=== PATIENT | female | born 1940 | race Caucasian/White ===

== ENCOUNTER 2017-01-20 09:25 | Inpatient (IN) | payer MEDICARE ==
[2017-01-20 10:05] LABS: Hematocrit 44 % (35-47); Hemoglobin 14.2 g/dl (12.0-16.0); Mean Corpuscular HGB Conc 33 g/dl (31-36); Mean Corpuscular Hemoglobin 28 pg (27-31); Mean Corpuscular Volume 85 fL (80-97); Mean Platelet Volume 8 um3 (7.4-10.4); Red Blood Count 5.14 10^6/ul (4.0-5.4); Red Cell Distribution Width 14 % (10.5-15); White Blood Count 7.7 10^3/ul (3.5-10.8)
--- NOTE | 2017-01-20 10:05 | RAD ---
INDICATION: Aphasia COMPARISON: CT brain July 05, 2014 TECHNIQUE: Noncontrast axial source images were acquired from the skull base to the vertex. FINDINGS: Ventricles/sulci: There is mild cortical atrophy with compensatory dilatation of the CSF spaces. Brain parenchyma: There is no focal parenchymal finding, evidence of intracranial mass, or intracranial mass effect. Intracranial hemorrhage:None. Extra-axial spaces: There are no abnormal extra axial fluid collections or evidence of extra-axial mass. Calvarium: There is no calvarial fracture or other calvarial abnormality. Scalp: There is no evidence of scalp or extracalvarial soft tissue abnormality. Paranasal sinuses/mastoid: The paranasal sinuses and mastoid air cells are clear. Other: None. IMPRESSION: Mild cortical atrophy. No acute intracranial findings are identified on noncontrast imaging. Findings called to ED at 0958 hours
[2017-01-20] MEDS ORDERED: ALTEPLASE IVPB ONE (10:20)
[2017-01-20] MEDS ORDERED: ALTEPLASE IV ONE ×3 (10:20→10:22)
[2017-01-20] MEDS ORDERED: Alteplase* 100 MG VIAL ONE (10:30)
[2017-01-20 10:34] LABS: Albumin 4.2 g/dL (3.2-5.2); BUN/Creatinine Ratio 17.5 (8-20); Calcium 9.7 mg/dL (8.6-10.3); EGFR African American 89.7 (>60); EGFR Non-African American 69.7 (>60); Globulin 3.2 g/dL (2-4); HDL Cholesterol 56.5 mg/dL; Potassium 3.2 mmol/L (3.5-5.0); Total Bilirubin 0.6 mg/dL (0.2-1.0); Total Protein 7.4 g/dL (6.4-8.9)
--- NOTE | 2017-01-20 10:51 | RAD ---
INDICATION: Cerebrovascular accident. COMPARISON: Appear seated is made with prior studies from April 29, 2012 and July 05, 2014. TECHNIQUE: A portable view of the chest was obtained. FINDINGS: Cardiac and mediastinal contours appear to be within normal limits. There is slight elevation of the left hemidiaphragm. There is pleural thickening present laterally at the left lung base which is unchanged suggestive of scarring. The lungs are otherwise clear IMPRESSION: LEFT BASILAR SCARRING AND VOLUME LOSS, NO EVIDENCE FOR ACUTE FINDING.
--- NOTE | 2017-01-20 11:54 | HP ---
H&P (Free Text) History and Physical: Critical Care Medicine Admission Note/History and Physical 76 yo female who presented to ER with acute onset of dysarthria and facial droop whose CT Head revealed only cortical atrophy and subsequently was administered TPA. When arrived to see patient, she was in course of interview by Neurologist, Dr Arce. Contacted per protocol to admit patient to ICU for 24 hr observation post TPA. NKDA PMH: Shingles, Vertigo, Thoracic Surgery on Lt side for management of tuberculosis 46 years ago in [facility], HTN, Hypercholesterolemia, B12 deficiency, x2, Anxiety Meds: Lisinopril/HCTZ 20/25 Q AM and Lisinopril 20 mg Q PM; ASA 81 mg Q PM, B12 shot monthly by PMD, Pravastatin 10 mg Q 48 hrs, Cloraz 7.5 mg cuts it into 4 pieces and takes the one quarter tab PRN Soc Hx: lives alone, has 2 sons in area, is originally from [facility], negative Tobacco, negative EtOH Fam Hx: mother with Breast Ca, father of head trauma, sister with some form of cancer recently ROS: denies cardiac, pulmonary, hepatobiliary, hematologic, gastrointestinal, infectious diseases re Neurologic experiences occassional dizziness with loss of balance...has seen an ENT specialist in [facility] SBP 158 HR 103 RR 16 SpO2 97 Skin no diaphoresis, no cyanosis Sclerae anicteric, pupils equal Oral mucosa pink Neck supple, no bruits Lungs with bilateral BS, no wheezes Cor RRR S1 and S2 normal, no rub, no murmur Abd soft, nontender, (+)BS Ext no edema Neuro speech fluent, strong in all 4 extremities, oriented and cooperative WBC 7.7 Hgb 14.2 Plt 255 INR 0.86 PTT 25.6 K 3.2 BUN/Creat 14/0.8 Gluc 130-150 TG 98 Cholest 158 LDL 82 CXR no PVC, no infiltrates IMP: Acute onset of dysarthria and facial droop consistent with acute CVA for which TPA administered....coming to ICU for routine post-TPA observation Hx HTN Hx Hypercholesterolemia Hypokalemia Mild hyperglycemia...??stress response Hx thoracic surgery for TB in remote past Hx mild anxiety PLAN/REC: Admit to ICU Ongoing Neurology assessment Ultrasound Carotids per request of Neurology CT Head at 24 hrs per protocol MRI Brain tomorrow per Neurology Resume usual anti-HTN meds Replete K Usual dose Pravastatin Will probably give Ativan at low dose if needed for anxiety unless there are available low doses of her agent DVT prophyl Keep HOB raised Swallow evaluation per routine
[2017-01-20] MEDS ORDERED: Potassium Chloride LIQUID* 20 MEQ PACKET PO ONE (12:06)
[2017-01-20] MEDS ORDERED: CLORAZEPATE 7.5 MG PO PRN (14:00)
[2017-01-20] MEDS ORDERED: Labetalol IV* 5 MG/ML 20 ML VIAL IV PUSH PRN (14:31)
--- NOTE | 2017-01-20 14:32 | RAD ---
INDICATION: Stroke. COMPARISON: No relevant prior exams available on the [facility] [place] PACS. TECHNIQUE: Bilateral carotid duplex scan. Stenosis estimations reflect velocity criteria that have been correlated to angiographic stenosis calculations based on distal internal carotid diameter. REPORT: RIGHT ICA: 47 cm/s peak systolic 15 cm/s end diastolic CCA: 76 cm/s peak systolic ICA/CCA peak systolic ratio: 0.61 The right common carotid artery and internal carotid artery are without evidence for significant atherosclerotic disease. Normal spectral wave forms are present throughout. Antegrade flow in the right vertebral artery. LEFT ICA: 55 cm/s peak systolic 15 cm/s end diastolic CCA: 86 cm/s peak systolic ICA/CCA peak systolic ratio: 0.67 The left common carotid artery and internal carotid artery are without evidence for significant atherosclerotic disease. Normal spectral wave forms are present throughout. Antegrade flow in the left vertebral artery. IMPRESSION: Negative carotid ultrasound. CPT II Codes: 3100F
[2017-01-20] MEDS: Lisinopril TAB* 10 MG PO SCH (17:08)
[2017-01-20] MEDS: CMC:Pravastatin (NF) 20 MG TAB PO SCH (17:10)
--- NOTE | 2017-01-20 19:59 | CONS ---
NEUROLOGY CONSULTATION: DATE OF CONSULTATION: 01/20/17 LOCATION: She is in the emergency room, to be admitted. REFERRING PHYSICIAN: Dr. Jenkins. PRIMARY CARE DOCTOR: Dr. Leary. CHIEF COMPLAINT: Slurred speech. HISTORY OF PRESENT ILLNESS: Ashely Tracy is a 76-year-old right-handed woman who was in her usual state of health this morning, when she got up feeling fine. At about 9 o'clock she was reading, it sounds like to herself, and she realized that her speech was altered. At another time she states the right side of her mouth just did not feel right. She does not describe numbness or tingling and it is hard to differentiate whether she feels if there was just altered speech or some other abnormal sensation, but she did not feel normal and called her son. When she spoke to her son over the phone, he agreed that her speech was altered and so she presented to the emergency room. Time of onset was felt to be about 9 o'clock, but the last time she had spoken with anybody or even to herself as best as I can tell was the night before. In any case, other than the change in speech and funny sensation in the right side of her lower face, there were no other symptoms. There is no headache, visual symptoms, problems with coordination in the limbs, or difficulty walking. There is no history of stroke or transient ischemic attack. There has been no recent trauma, history of intracranial bleeding, or recent surgeries. She is on chronic aspirin therapy, but not anticoagulants. There is no history of heart disease. She has a history of hypertension, but not of diabetes and she is a nonsmoker. PAST MEDICAL HISTORY: Notable for hypertension. MEDICATIONS: At home consist of: 1. Aspirin 81 mg p.o. daily. 2. Lisinopril 20 mg p.o. daily. 3. Hydrochlorothiazide 25 mg p.o. daily. 4. Pravastatin dose unknown. 5. Vitamin D dose unknown. ALLERGIES: According to the computer records, she does not have any drug allergies. REVIEW OF SYSTEMS: Negative for headaches, recent falls, difficulty walking, change in vision, or numbness or tingling in the limbs. There is no history of diabetes, heart disease, or recent falls. She does feel a bit unsteady at times , but does not use any assistive aids to walk. She is a nonsmoker. PHYSICAL EXAM: She is well nourished and well hydrated, a little bit overweight. Blood pressure on the monitor is running about 150/80 to 90, heart rate running in the 70s and appears to be in sinus rhythm, respirations about 16. Heart is in a regular rate and rhythm without murmurs heard. Carotid pulses are symmetrical and there are no cervical bruits. Oral mucosa is moist and atraumatic. Neurological: Pupils react equally from about 4 down to about 2.5 mm. Eye movements are normal and visual foley are full to confrontation. Palate and tongue appear normal, tongue protrudes in the midline and palate rises symmetrically. She has a mild buccolingual dysarthria. Facial musculature reveals very mild flattening of the right nasolabial fold. Volitional facial movement is normal. Facial sensation to pin and light touch is relatively intact with some variable asymmetries, but no fixed sensory deficit. Hearing is intact. Motor exam reveals normal muscle tone and strength in the limbs proximally and distally. 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 There is no pronator drift. There is no drift downward in the legs either. Sensory exam in the limbs to light touch and pin is variable, but there is no fixed pattern of sensory deficits in the limbs. Kxough-tl-rkmc maneuver and ssey-ma-lvzk maneuvers are normal. Finger taps in the hands are normal as well. Reflexes are brisk and symmetric, grade 1 ankle reflexes. Plantars are flexor bilaterally. DIAGNOSTIC STUDIES/LAB DATA: Includes a CT of the brain, which I reviewed and which looks completely normal. Chemistries notable for nonfasting glucose of 144, lactic acid 2.7, otherwise normal chemistry profile. Non-fasting lipid profile this morning notable for cholesterol 158, LDL 82. INR is low normal at 0.86 as well as PTT at 25.6. CBC is within normal limits, platelet count is 255 ,000. IMPRESSION: Possible transient ischemic attack or minor stroke. Dr. Jenkins has already started to give her TPA and it is infusing. I rate her NIH stroke score as 2. She has no contraindications to TPA. I explained the potential risks of TPA to Ms. Tracy and her son including risk of intracranial and gastrointestinal bleeding. She would be admitted to the intensive care unit to undergo the usual post TPA stroke protocol. She should have an imaging study of her carotid arteries today, as she has high grade left intracranial carotid stenosis, she would be a candidate for an endarterectomy in the days ahead. In that case, she would need to be transferred to a center where Vascular Surgery is available. I will follow her with you. [id number]/[facility] #: [id number] PAGE
--- NOTE | 2017-01-21 08:08 | ED ---
Ever Orona Adam, scribed for Joey Hightower MD on 01/20/17 at 0935 . Neurological HPI - HPI Summary HPI Summary: 76 year old female arrived to [facility] complaining of slurred speech beginning 1 hour [employer]. Patient had difficulty talking and felt that her speech was altered. She denied any headache. She has a PMHx of HLD and HTN for which she takes medication, but denied any past CVA/TIA, head injuries, or DM. - History of Current Complaint Chief Complaint: ED Stated Complaint: SLURRED SPEECH Time Seen by Provider: 01/20/17 09:34 Onset/Duration: Gradual Onset Timing: Constant Onset Severity: Moderate Current Severity: Moderate Neurological Deficit Location: Generalized Pain Intensity: 0 Character: Impaired Speech Alleviating: Spontanious Resolution Associated Signs and Symptoms: Negative: Headache - Allergy/Home Medications Allergies/Adverse Reactions: Allergies Allergy/AdvReac Type Severity Reaction Status Date / Time No Known Allergies Allergy Verified 07/05/14 17:48 Home Medications: Home Medications Aspirin EC Low Dose* [Ecotrin EC Low Dose*] 81 mg PO DAILY 01/20/17 [History Confirmed 01/20/17] Clorazepate TAB* [Tranxene TAB*] 7.5 mg PO TID 01/20/17 [History Confirmed 01/20] Cyanocobalamin INJ * [Vitamin B12 INJ *] 1,000 mcg IM MONTHLY 01/20/17 [History Confirmed 01/20/17] Lisinopril TAB* [Prinivil TAB*] 20 mg PO QPM 01/20/17 [History Confirmed ] Lisinopril/HCTZ 20/25(NF) [Zestoretic 20/25(NF)] 1 tab PO DAILY 01/20/17 [ History Confirmed 01/20/17] Pravastatin (NF) [Pravachol (NF)] 10 mg PO EVERY OTHER DAY 01/20/17 [History Confirmed 01/20/17] PMH/Surg Hx/FS Hx/Imm Hx Endocrine/Hematology History: Denies: Hx Diabetes Cardiovascular History: Reports: Hx Hypercholesterolemia, Hx Hypertension Neurological History: Denies: Hx CVA, Hx Transient Ischemic Attacks (TIA) - Surgical History Surgery Procedure, Year, and Place: not on head or neck Infectious Disease History: No Infectious Disease History: Reports: Hx Shingles, Hx Tuberculosis Denies: History Other Infectious Disease, Traveled Outside the [place] in Last 30 Days - Family History Known Family History: Positive: Hypertension Negative: Cardiac Disease, Diabetes - Social History Alcohol Use: None Substance Use Type: Reports: None Smoking Status (MU): Never Smoked Tobacco Review of Systems Negative: Fever, Chills Negative: Erythema Negative: Sore Throat Negative: Chest Pain Negative: Shortness Of Breath, Cough Negative: Abdominal Pain, Vomiting, Nausea Negative: dysuria, hematuria Negative: Myalgia, Edema Negative: Rash Neurological: Other - no dizziness All Other Systems Reviewed And Are Negative: Yes Physical Exam - Summary Physical Exam Summary: Constitutional: Well-developed, Well-nourished, Alert. (-) Distressed Skin: Warm, Dry HENT: Eyes: Conjunctiva normal Neck: Musculoskeletal ROM normal neck. (-) JVD, (-) Stridor, (-) Tracheal deviation Cardio: Rhythm regular, rate normal, Heart sounds normal; Intact distal pulses ; The pedal pulses are 2+ and symmetric. Radial pulses are 2+ and symmetric. (- ) Murmur Pulmonary/Chest wall: Effort normal. (-) Respiratory distress, (-) Wheezes, (-) Rales Abd: Soft. (-) Tenderness, (-) Distension, (-) Guarding, (-) Rebound Musculoskeletal: (-) Edema Lymph: (-) Cervical adenopathy Neuro: Alert, Oriented x3, Strength normal, Cranial nerves II-XII are grossly intact. (-) Dysmetria, (-) Nystagmus, (-) Ataxia by finger to nose testing, (-) Sensory deficit. Psych: Mood and affect Normal Triage Information Reviewed: Yes Vital Signs On Initial Exam: Initial Vitals Temp Pulse Resp BP Pulse Ox 96.7 F 112 20 179/108 99 01/20/17 09:27 01/20/17 09:27 01/20/17 09:27 01/20/17 09:27 01/20/17 09:27 Vital Signs Reviewed: Yes Diagnostics - Vital Signs Vital Signs Temp Pulse Resp BP Pulse Ox 01/20/17 09:27 96.7 F 112 20 179/108 99 - Laboratory Result Diagrams: 01/20/17 09:50 01/20/17 09:50 Lab Statement: Any lab studies that have been ordered have been reviewed, and results considered in the medical decision making process. - Radiology CXR Radiology Interpretation Completed By: Radiologist - IMPRESSION: LEFT BASILAR SCARRING AND VOLUME LOSS, NO EVIDENCE FOR ACUTE FINDING. - CT Brain CT CT Interpretation Completed By: Radiologist - IMPRESSION: Mild cortical atrophy. No acute intracranial findings are identified on noncontrast imaging. Findings called to ED at 0958 hours - EKG 09:39 Cardiac Rate: Tachycardia - 105 BPM EKG Rhythm: Sinus Tachycardia - 105 bpm EKG Interpretation: no STEMI - Additional Comments Diagnostic Additional Comments: Lactic Acid - 2.7 NIH Scale - NIH Scale Level of Consciousness: Alert/Keenly Responsive Ask Patient the Month and His/Her Age: Both Correct Ask Pt to Open/Close Eyes and Dairy Hand/Release Non-Paretic Hand: Both Correctly Best Gaze (Only Horizontal Eye Movement): Normal Visual Field Testing: No Visual Loss Facial Paresis-Pt to Smile & Close Eyes or Grimace Symmetry: Minor Paralysis Motor Function - Right Arm: No Drift-Holds 10 Seconds Motor Function - Left Arm: No Drift-Holds 10 Seconds Motor Function - Right Leg: No Drift-Holds 10 Seconds Motor Function - Left Leg: No Drift-Holds 10 Seconds Limb Ataxia-Must be out of Proportion to Weakness Present: Absent Sensory (Use Pinprick to Test Arms/Legs/Trunk/Face): Normal Best Language (Describe Picture, Name Items): No Aphasia Dysarthria (Read Several Words): Slurs Some Words Extinction and Inattention: No Abnormality Total Score: 2 Re-Evaluation - Re-Evaluation First Eval Re-Evaluation Time: 11:45 - Pt's speech is improved. Change: Improved Course/Dx - Course Course Of Treatment: 10:20 - We had a long risk/benefit discussion with family at bedside involving both of the pt's sons and her [id number]. They and the pt agreed that slurred speech would be particularly disabling for her so we decided to proceed with the TPA. - Diagnoses Provider Diagnoses: CVA (cerebral vascular accident) - Physician Notifications Discussed Care of Patient With: Dr. Joyce (ICU) at 10:43. - Critical Care Time Critical Care Time: 30-74 min - 45 minutes Discharge - Discharge Plan Condition: Stable Disposition: ADMITTED TO [facility] documentation as recorded by the Ever lima Adam accurately reflects the service I personally performed and the decisions made by , Joey Hightower MD.
[2017-01-21] MEDS: Hydrochlorothiazide TAB* 25 MG PO SCH (08:54)
[2017-01-21] MEDS: Lisinopril TAB* 10 MG PO SCH ×2 (08:54→17:25)
[2017-01-21] MEDS ORDERED: Potassium Chlor TAB* 20 MEQ TAB.ER PO ONE (10:00)
[2017-01-21 10:29] LABS: Urine Bacteria Absent (Absent); Urine Bilirubin Negative (Negative); Urine Glucose Negative (Negative); Urine Nitrite Negative (Negative)
[2017-01-21] MEDS ORDERED: Gadoteridol* (CONTRAST) 279.3 MG/ML 10 ML IV ONE (10:29)
--- NOTE | 2017-01-21 11:11 | PN ---
Progress Note - Progress Note Note: CRITICAL CARE MEDICINE Date: 01/21/17 Time: 800 SUBJECTIVE: Patient seen and examined. Son at bedside. PHYSICAL EXAM: Vital Signs: Reviewed. Neurologic: awake, communicating. feels her speech is altered, and is a little slurred. Eq strength bl HEENT: pupils equal. Sclera anicteric. Trachea midline. Cardiovascular: S1 S2 Respiratory: clear Abdomen: Soft, nt. No r/g/r. Extremities: Warm. LABS: Reviewed. IMAGING: Reviewed. MEDICATIONS: Reviewed. ASSESSMENT: 76 F CVA s/p TPA - ?small cva residual- as explained to pt and son. Awaitr MRI today to confirm finding and continued risk factor modifications. Will be post tpa 24h today and can start asa post imaging. MRI should be adequate for timing. Lipids ok but on low dose statin. Leave on tele another 24h. PO diet. oob. ambulate. F/u outpt htn needs. Neuro f/u Supportive and preventative care as ordered. SUP: po VTE prophylaxis: held post tpa, and now can ambulate. Disposition: to floor Code Status: Full Critical Care Time: 25min FMick Lamb DO
--- NOTE | 2017-01-21 11:25 | RAD ---
INDICATION: CVA status post TPA. COMPARISON: Comparison is made with prior CTs of the brain from January 20, 2017 and January 21, 2017. TECHNIQUE: Sagittal T1, axial T1, T2, susceptibility, FLAIR and diffusion-weighted images were obtained. In addition, axial, sagittal and coronal T1-weighted images were obtained following intravenous injection of 15 ml of ProHance contrast. FINDINGS: The ventricles, cisterns and sulci are prominent consistent with diffuse atrophy. There are several small focal areas of increased signal intensity on T2 weighted images in the periventricular white matter most consistent with chronic small vessel ischemic changes. There is a small area of restricted diffusion present in the left periventricular white matter and centrum semiovale in the posterior left frontal lobe measuring 1.5 x 0.8 cm in size most consistent with acute infarct. There is no evidence for hemorrhage. No abnormal enhancement is present. The visualized portion of the paranasal sinuses and mastoid air cells appear clear. IMPRESSION: SMALL ACUTE NONHEMORRHAGIC INFARCT IN THE POSTERIOR LEFT FRONTAL LOBE.
--- NOTE | 2017-01-21 11:31 | RAD ---
INDICATION: CVA status post TPA. COMPARISON: Correlation is made with a prior CT of the brain from January 20, 2017 and a prior MRI of the brain from January 21, 2017. TECHNIQUE: Contiguous axial sections of the brain were obtained from the skull base to the vertex without contrast. FINDINGS: The ventricles, cisterns and sulci are enlarged consistent with diffuse atrophy. No significant focal abnormality is seen. No discrete abnormality is noted to correlate with the small area of restricted diffusion on the MRI study in the posterior left frontal lobe. There is no evidence for hemorrhage. No significant focal osseous abnormality is seen. The visualized portion of the paranasal sinuses and mastoid air cells appear clear. IMPRESSION: NO EVIDENCE FOR HEMORRHAGE.
[2017-01-21] MEDS: Aspirin Low Dose CHEW TAB* 81 MG PO SCH (13:27)
[2017-01-21] MEDS: Clopidogrel TAB* 75 MG PO SCH (15:03)
--- NOTE | 2017-01-21 16:00 | ECHO ---
Patient: ЕКАТЕРИНА GORMAN [facility] Rec#: [id number] : 1940 Date: 01/21/2017 Age: 76y Height: 157.48 cm / 62.0 in Weight: 79.83 kg / 175.9 lbs Sex: F BSA: 1.81 Room#: [facility] Admit Date#: 01/20/2017 Type: Inpatient Referring: Rommel Arce MD Reading: Foster Garcia MD Hydraulic Repairer: Velasquez Smith RDCS CC: Reed Leary MD Transthoracic Echocardiogram Indication: STROKE BP: 141/73 HR: 90 Rhythm: NSR Findings History: HTN,HLD, Technical Comments: The study is technically difficult. The study is technically limited due to patient body habitus. Left Ventricle: The left ventricular chamber size is normal. Mild to moderate concentric left ventricular hypertrophy is observed. Global left ventricular wall motion and contractility are within normal limits. There is normal left ventricular systolic function. The estimated ejection fraction is 60-65%. Abnormal left ventricular diastolic filling is observed, consistent with impaired relaxation. The lack of left atrial enlargement suggests this finding may not have clinical significance. Left Atrium: The left atrial chamber size is normal. Right Ventricle: The right ventricular cavity size is normal. The right ventricular global systolic function is normal. Right Atrium: The right atrial cavity size is normal.The interatrial septum was not visualized well enough to comment on any intactness. No bubble study was ordered. Aortic Valve: The aortic valve is trileaflet. There is no evidence of aortic regurgitation. There is no evidence of aortic stenosis. Mitral Valve: There is mitral annular calcification. There is no evidence of mitral regurgitation. There is no evidence of mitral stenosis. Tricuspid Valve: There is trace tricuspid regurgitation. The right ventricular systolic pressure is estimated at 18 mmHg. Pulmonic Valve: The pulmonic valve appears normal. There is no evidence of pulmonic regurgitation. There is no pulmonic stenosis. Pericardium: There is no pericardial effusion. A pericardial fat pad is visualized. Aorta: There is no dilatation of the ascending aorta. There is no dilatation of the aortic arch. There is no dilation of the aortic root. Pulmonary Artery: The main pulmonary artery appears normal. Venous: The inferior vena cava appears normal in size. There is a greater than 50% respiratory change in the inferior vena cava dimension. Conclusions The study is technically limited due to patient body habitus. Mild to moderate concentric left ventricular hypertrophy is observed. The estimated ejection fraction is 60-65%. Abnormal left ventricular diastolic filling is observed, consistent with impaired relaxation. The lack of left atrial enlargement suggests this finding may not have clinical significance. There is trace tricuspid regurgitation. No reports of prior studies offered for comparison. If a more definitive assessment of the interatrial septum is needed would suggest transesophageal imaging with color flow doppler and contrast imaging. Measurements Name Value Normal Range RVIDd (AP) 2D 2.4 cm (0.9 - 2.6) RVDdMajor (2D) 2.2 cm (2.2 - 4.4) RAd ISD 4CH 4 cm (3.4 - 4.9) RA (A4C)W 2.6 cm (2.9 - 4.6) IVSd (2D) 1.1 cm (0.6 - 1) LVPWd (2D) 0.9 cm (0.6 - 1) LVIDd (2D) 2.8 cm (3.6 - 5.4) LVIDs (2D) 2.1 cm - LV FS (2D) 25 % (25 - 45) Aortic Annulus 1.6 cm (1.4 - 2.6) Ao root diameter (2D) 2.5 cm (2.1 - 3.5) Ascending Ao 3 cm (2.1 - 3.4) Aortic arch 1.9 cm (1.8 - 3.4) LA dimension (AP) 2D 3.2 cm (2.3 - 3.8) LAd ISD 4CH 4.5 cm (2.9 - 5.3) LA ISD 4CH W 2.5 cm (2.5 - 4.5) Name Value Normal Range LA ESV SP 4CH (A/L) 25 ml - LA ESV SP 2CH (A/L) 14 ml - LA ESV BP (A/L) 19 ml - LA ESV BP (A/L) index 10.6 ml/m2 - LA ESV SP 4CH (MOD) 24 ml - LA ESV SP 2CH (MOD) 13 ml - Name Value Normal Range MV E-wave Vmax 0.52 m/sec - MV deceleration time 123 msec - MV A-wave Vmax 0.81 m/sec - MV E:A ratio 0.63 ratio - LV septal e' Vmax 0.05 m/sec - LV lateral e' Vmax 0.06 m/sec - LV E:e' septal ratio 10.8 ratio - LV E:e' lateral ratio 9 ratio - Name Value Normal Range LVOT diameter 1.7 cm - LVOT Vmax 0.9 m/sec - Name Value Normal Range TR Vmax 1.9 m/sec - TR peak gradient 15 mmHg - RAP 3 mmHg - RVSP 18 mmHg - IVC diameter 1.44 cm - Name Value Normal Range PV Vmax 0.9 m/sec -
--- NOTE | 2017-01-21 19:54 | CONS ---
NEUROLOGY FOLLOWUP: DATE OF FOLLOWUP: 01/21/17 LOCATION: Inpatient in Room #443. HOSPITALIST: Dr. Chang. PRIMARY CARE PROVIDER: Dr. Leary. CHIEF COMPLAINT: Slurred speech. INTERVAL HISTORY: Since yesterday, Mrs. Lund feels that she is better. At times, she still feels like her speech is a little off. She feels steady in her feet and has not noticed any weakness or incoordination in her limbs. No headaches or facial numbness or change in vision. MEDICATIONS: Reviewed and she is now on: 1. Aspirin 81 mg p.o. daily started today. 2. Tranxene 1.875 mg p.o. t.i.d. as needed. 3. HydroDIURIL 25 mg p.o. daily. 4. Prinivil 20 mg p.o. b.i.d. 5. Pravastatin 10 mg p.o. daily. PHYSICAL EXAMINATION: She is well nourished and well hydrated. Temperature 99.0 temporally, blood pressure running about 140/60-73, heart rate is about 70 and regular. Heart is in a regular rate and rhythm without murmurs heard. Neurologically, facial musculature appears symmetric. She has an accent but I do not detect any dysarthria. Eye movements seem full. Facial sensation to cotton is intact. She has normal coordination and finger taps in the upper extremities. There is no pronator drift. She is alert and a little anxious but appears to have an intact memory and appears to have fairly fluent language. DIAGNOSTIC STUDIES/LAB DATA: Laboratory data includes lipid profile from yesterday when she presented with a cholesterol of 158 and LDL of 82. Hemoglobin A1c is pending. MRI of the brain was reviewed and reveals a small acute periventricular, somewhat linear shaped infarct in the left frontoparietal subcortical white matter. There may be some mild chronic ischemic changes as well. CT of the brain was essentially normal. Carotid ultrasound was unremarkable. IMPRESSION: Small subcortical infarction. Etiology appears to be small vessel disease with main risk factors being her age and history of hypertension. Her nonfasting glucose was elevated and her A1c is pending. We are recommending Plavix to aspirin as she was on aspirin when she had the event. I would recommend dual antiplatelet therapy for 60 to 90 days and then switching to monotherapy with Plavix. We will await her A1c to see if there is evidence of diabetes, which could alter recommendations. I have ordered an echocardiogram as well to see if there is any evidence of a cardioembolic source. Her blood pressure is currently adequately treated. Unless she turns out to be diabetic, her lipids are at acceptable range as well. I have discussed the findings of her studies and current recommendations with Mrs. Tracy and her son. [id number]/[facility] #: [id number] PAGE
[2017-01-22 05:20] LABS: BUN/Creatinine Ratio 26.5 (8-20); Calcium 9.3 mg/dL (8.6-10.3); EGFR Non-African American 66.8 (>60); Potassium 3.4 mmol/L (3.5-5.0)
[2017-01-22 08:02] VITALS: BP 140/80
[2017-01-22] MEDS: Hydrochlorothiazide TAB* 25 MG PO SCH (08:39)
[2017-01-22] MEDS: Aspirin Low Dose CHEW TAB* 81 MG PO SCH (08:39)
[2017-01-22] MEDS: Clopidogrel TAB* 75 MG PO SCH (08:39)
[2017-01-22] MEDS: Lisinopril TAB* 10 MG PO SCH (08:39)
[2017-01-22] MEDS: CMC:Pravastatin (NF) 20 MG TAB PO SCH (08:42)
--- NOTE | 2017-01-23 07:35 | DS ---
DISCHARGE SUMMARY: DATE OF ADMISSION: 01/20/17 DATE OF DISCHARGE: 01/22/17 PRIMARY CARE PROVIDER: Dr. Leary. DISCHARGE DIAGNOSIS: Acute nonhemorrhagic ischemic cerebrovascular accident in the posterior left frontal lobe and subsequent right facial droop due to that, status post tPA treatment. SECONDARY DIAGNOSES: 1. Hypertension. 2. Dyslipidemia. MEDICATIONS AT DISCHARGE: Include: 1. Pravachol 10 mg every other day. 2. Lisinopril and hydrochlorothiazide 20/25 one tablet daily. 3. Lisinopril 20 mg q.p.m. 4. Vitamin B12 injections 1000 mcg monthly IM. 5. Tranxene 7.5 mg 3 times a day. 6. Plavix 75 mg daily. 7. Aspirin 81 mg daily. LABORATORY DATA AND STUDIES PERFORMED DURING THE HOSPITAL STAY: Included the patient's lipid profile showed triglycerides of 98, cholesterol of 158, LDL of 82, and HDL of 56. On 01/22/17, sodium was 136, potassium 3.4, chloride 101, carbon dioxide 29, BUN 22, creatinine 0.83. The patient's hemoglobin A1c was 6.2. Transthoracic echocardiogram obtained on 01/21/17 showed EF of 60% to 65% with mild- to-moderate LVH. Abnormal ventricular diastolic filling was observed consistent with impaired relaxation. There was trace tricuspid regurgitation. Brain MRI, impression: "Small acute nonhemorrhagic infarct in the posterior left frontal lobe." Carotid Doppler studies performed on 01/20/17, impression: "Left common carotid artery and internal carotid artery without evidence for significant atherosclerotic disease. Normal spectral waveforms are present throughout. Antegrade flow in the left ventricular artery." CONSULTATIONS DURING THE HOSPITAL STAY: Included Dr. Arce from Neurology. HOSPITALIZATION COURSE: Ms. Tracy is a 76-year-old female, who presented to the hospital on 01/20/17 with right-sided facial droop. The patient was within the timeframe for tPA that was administered by the ED physician in the ER. Dr. Arce saw the patient in consultation. The patient was transferred to the intensive care unit after tPA. Her right-sided facial weakness improved, although the patient still has residual mild right-sided facial droop at discharge. The patient was seen by Dr. Arce in consultation, who recommended 60 days of dual-antiplatelet therapy with Plavix and aspirin and then most likely, the patient is going to be placed on Plavix with discontinuation of aspirin. The patient was observed on telemetry monitored bed and no significant arrhythmias were noted. Her brain MRI showed small left frontal ischemic CVA. The patient's hemoglobin A1c was noted to be 6.2 and the patient was diagnosed with impaired glucose tolerance and recommended diabetic diet. At discharge, the patient is recommended to follow up with Dr. Arce in approximately 1 to 2 months. The patient is also recommended to follow with her primary care physician in 4 to 7 days. PHYSICAL EXAMINATION: At the time of discharge, blood pressure of 140/80, heart rate of 98 and regular, respiratory rate 22, oxygen saturation 96% on room air, temperature 97.3. General: The patient is a very pleasant 76-year- old female who is in no acute distress. Alert, awake, and oriented x3. HEENT: Head: Atraumatic and normocephalic. Eyes: Pupils equal and reactive to light and accommodation. Oropharynx clear. Mucosa moist. Neck: Supple. No JVD, no bruits bilaterally. Cardiovascular: Regular rate and rhythm. No murmur. Respiratory: Clear to auscultation bilaterally. Abdomen: Soft and nontender. Bowel sounds present in all 4 quadrants. Extremities: There is no edema. Pulses are +2 bilaterally. No clubbing or cyanosis. Neuro Evaluation: Notable for slight right-sided facial droop. There is very mild dysarthria due to that present. Otherwise, cranial nerves are grossly intact. Motor strength is 5/5 bilaterally. There is no pronator drift. There is no sensation deficit. Please note that this is a short summary of the patient's hospital stay, please refer to further medical records for details. TIME SPENT: Approximately 35 minutes was spent on the patient's discharge. CC: Dr. Leary; Dr. Arce* [id number]/[facility] #: [id number] MTDMckenzie
== END 2017-01-22 13:23 | disposition home or self-care (01) | DRG 63 ==
LOC: ED 09:25 → ICU 11:30 → MEDTELE 01-21 09:22
PROVIDERS: ADMIT Internal Medicine Critical Care Medicine; ATTEND Internal Medicine
DX: I63.9 Cerebral infarction, unspecified (principal); I07.1 Rheumatic tricuspid insufficiency; I10 Essential (primary) hypertension; E78.5 Hyperlipidemia, unspecified; E78.00 Pure hypercholesterolemia, unspecified; R29.702 NIHSS score 2; R47.1 Dysarthria and anarthria; R29.810 Facial weakness; F41.9 Anxiety disorder, unspecified; E53.8 Deficiency of other specified B group vitamins; E87.6 Hypokalemia; E66.3 Overweight; R73.02 Impaired glucose tolerance (oral); Z86.11 Personal history of tuberculosis; Z82.49 Family history of ischemic heart disease and other diseases of the circulatory system; Z80.3 Family history of malignant neoplasm of breast; Z80.9 Family history of malignant neoplasm, unspecified; Z68.32 Body mass index [BMI] 32.0-32.9, adult; Z79.02 Long term (current) use of antithrombotics/antiplatelets; Z79.82 Long term (current) use of aspirin
CPT/HCPCS: 36415; 70450; 70553; 71010; 80048; 80053; 80061; 81003; 81015; 83036; 83605; 84484; 85025; 85610; 85730; 86850; 86900; 86901; 87086; 87641; 93005; 93306; 93880; 99285; A9270-GY; A9579; J2997

== ENCOUNTER 2017-10-23 11:37 | Emergency (ER) | payer MEDICARE ==
--- NOTE | 2017-10-23 16:27 | RAD ---
INDICATION: Dizziness COMPARISON: CT brain January 13, 2017 TECHNIQUE: Noncontrast axial source images were acquired from the skull base to the vertex. FINDINGS: Ventricles/sulci: There is cortical atrophy with compensatory dilatation of the CSF spaces. Brain parenchyma: There is mild periventricular and subcortical white matter change compatible with chronic ischemia. Intracranial hemorrhage:None. Extra-axial spaces: There are no abnormal extra axial fluid collections or evidence of extra-axial mass. Calvarium: There is no calvarial fracture or other calvarial abnormality. Scalp: There is no evidence of scalp or extracalvarial soft tissue abnormality. Paranasal sinuses/mastoid: The paranasal sinuses and mastoid air cells are clear. Other: None. IMPRESSION: No acute intracranial findings
[2017-10-23 16:34] LABS: Albumin 4.7 g/dL (3.2-5.2); BUN/Creatinine Ratio 13.9 (8-20); Calcium 9.6 mg/dL (8.6-10.3); EGFR Non-African American 70.8 (>60); Globulin 3.1 g/dL (2-4); Magnesium 1.8 mg/dL (1.9-2.7); Potassium 3.1 mmol/L (3.5-5.0); Total Bilirubin 0.4 mg/dL (0.2-1.0); Total Protein 7.8 g/dL (6.4-8.9)
--- NOTE | 2017-10-23 16:34 | RAD ---
INDICATION: Dizziness. Atraumatic neck pain. COMPARISON: None TECHNIQUE: Noncontrast axial source images was performed from the skull base to the thoracic inlet. Coronal and and sagittal reformatted images were generated. FINDINGS: Vertebrae: There is no fracture or acute focal bony lesion. There is spondylitic change of the cervical spine from C3 through C7 with endplate sclerosis, anterior vertebral spur perforation, mild posterior splenic regeneration, and uncinate process spurring. Alignment: The craniocervical junction appears normal. The cervical vertebrae are normally aligned. Central Canal: There are no significant CT abnormalities of the central canal or foramina. MR imaging is a more sensitive method to evaluate the canal and foramina. Intervertebral disc spaces: The disc spaces are maintained. Brain: The visualized brain appears unremarkable. Soft tissues: The visualized soft tissue elements of the neck are unremarkable. The prevertebral soft tissues appear normal. The lung apices are clear. IMPRESSION: MODERATE MULTILEVEL OSTEOARTHRITIC CHANGE. NO ACUTE FINDINGS.
[2017-10-23 16:36] LABS: Hematocrit 45 % (35-47); Hemoglobin 14.7 g/dl (12.0-16.0); Mean Corpuscular HGB Conc 33 g/dl (31-36); Mean Corpuscular Hemoglobin 28 pg (27-31); Mean Corpuscular Volume 85 fL (80-97); Mean Platelet Volume 8 um3 (7.4-10.4); Red Blood Count 5.22 10^6/ul (4.0-5.4); Red Cell Distribution Width 13 % (10.5-15); White Blood Count 7.1 10^3/ul (3.5-10.8)
[2017-10-23] MEDS ORDERED: NS 0.9% 1000 ML* 1,000 ML IV ONE (16:42)
[2017-10-23] MEDS ORDERED: Potassium Chlor TAB* 10 MEQ TAB.ER PO ONE (16:43)
[2017-10-23 17:07] LABS: TSH (Thyroid Stimulating Horm) 0.82 mcIU/mL (0.34-5.60)
[2017-10-23 17:33] LABS: Urine Bacteria Absent (Absent); Urine Bilirubin Negative (Negative); Urine Glucose Negative (Negative); Urine Nitrite Negative (Negative)
--- NOTE | 2017-10-23 18:19 | ED ---
Dizziness - HPI Summary HPI Summary: 76F presents with right side upper back pain that radiates to right side of head. She also says she has vertigo when she looks to the right. This has been going on for 5 days. She had a TIA over 6 months ago. She states that back pain feels like a stiffness almost like a muscle spasms. She denies any fever. She denies any numbness or tingling. She denies any recent injury. She denies any change in vision. She denies any headache. She states dizziness is only with position changes. She states sometimes her head feel funny. She states that she is having difficulty walking. She denies any chest pain or SOB. She states pain is only a 3/10. She states feels like when she walks she drifts to the right. She has not tried any of her medication such as Tylenol or meclizine. - History Of Current Complaint Chief Complaint: EDDizziness Stated Complaint: DIZZY/RT SIDE HEAD PRESSURE Time Seen by Provider: 10/23/17 15:21 - Allergies/Home Medications Allergies/Adverse Reactions: Allergies Allergy/AdvReac Type Severity Reaction Status Date / Time No Known Allergies Allergy Verified 10/23/17 15:02 Home Medications: Home Medications Meclizine TAB* [Antivert 12.5 TAB*] 25 mg PO TID PRN 10/23/17 [History Confirmed 10/23/17] PMH/Surg Hx/FS Hx/Imm Hx Endocrine/Hematology History: Denies: Hx Diabetes Cardiovascular History: Reports: Hx Aneurysm - Patient followed up with heart doctor-no interventions, Hx Hypercholesterolemia, Hx Hypertension Denies: Hx Pacemaker/ICD Musculoskeletal History: Reports: Other Musculoskeletal History - Bursitis Sensory History: Reports: Hx Cataracts, Hx Contacts or Glasses, Hx Vision Problem Denies: Hx Hearing Aid Opthamlomology History: Reports: Hx Cataracts, Hx Contacts or Glasses, Hx Vision Problem Neurological History: Denies: Hx CVA, Hx Transient Ischemic Attacks (TIA) Psychiatric History: Denies: Hx Panic Disorder - Surgical History Surgery Procedure, Year, and Place: left lung surgery for TB. X 2 Infectious Disease History: No Infectious Disease History: Reports: Hx Shingles, Hx Tuberculosis Denies: History Other Infectious Disease, Traveled Outside the [place] in Last 30 Days - Family History Known Family History: Positive: Hypertension Negative: Cardiac Disease, Diabetes - Social History Alcohol Use: None Substance Use Type: Reports: None Smoking Status (MU): Never Smoked Tobacco Review of Systems Negative: Fever Negative: Chest Pain Negative: Shortness Of Breath Positive: Myalgia - right side back Neurological: Other - dizziness All Other Systems Reviewed And Are Negative: Yes Physical Exam Triage Information Reviewed: Yes Vital Signs On Initial Exam: Initial Vitals Temp Pulse Resp BP Pulse Ox 97.6 F 78 16 149/69 98 10/23/17 11:43 10/23/17 11:43 10/23/17 11:43 10/23/17 11:43 10/23/17 11:43 Vital Signs Reviewed: Yes Appearance: Positive: Well-Appearing Skin: Positive: Warm, Dry Head/Face: Positive: Normal Head/Face Inspection Eyes: Positive: Normal, EOMI, WARD, Conjunctiva Clear ENT: Positive: Normal ENT inspection, Pharynx normal, TMs normal Respiratory/Lung Sounds: Positive: Clear to Auscultation, Breath Sounds Present Cardiovascular: Positive: Normal, RRR Musculoskeletal: Positive: Other - tenderness over right side of neck and upper back, full ROM neck, no midline tenderness. Neurological: Positive: Sensory/Motor Intact, Alert, Oriented to Person Place, Time, CN Intact II-III, Normal Gait, Heel to Toe, Finger to Nose, [place] Test - positive to right, Other - alternating movements intact - Richard Coma Scale Best Eye Response: 4 - Spontaneous Best Motor Response: 6 - Obeys Commands Best Verbal Response: 5 - Oriented Coma Scale Total: 15 Diagnostics - Vital Signs Vital Signs Temp Pulse Resp BP Pulse Ox 10/23/17 14:32 97.5 F 86 16 150/70 100 10/23/17 11:43 97.6 F 78 16 149/69 98 - Laboratory Lab Results: Lab Results 10/23/17 10/23/17 10/23/17 Range/Units 16:05 16:05 16:05 WBC 7.1 (3.5-10.8) 10^3/ul RBC 5.22 (4.0-5.4) 10^6/ul Hgb 14.7 (12.0-16.0) g/dl Hct 45 (35-47) % MCV 85 (80-97) fL MCH 28 (27-31) pg MCHC 33 (31-36) g/dl RDW 13 (10.5-15) % Plt Count 292 (150-450) 10^3/ul MPV 8 (7.4-10.4) um3 Neut % (Auto) 68.4 (38-83) % Lymph % (Auto) 23.3 L (25-47) % [place] % (Auto) 6.4 (1-9) % Eos % (Auto) 1.0 (0-6) % Baso % (Auto) 0.9 (0-2) % Absolute Neuts (auto) 4.9 (1.5-7.7) 10^3/ul Absolute Lymphs (auto) 1.7 (1.0-4.8) 10^3/ul Absolute Monos (auto) 0.5 (0-0.8) 10^3/ul Absolute Eos (auto) 0.1 (0-0.6) 10^3/ul Absolute Basos (auto) 0.1 (0-0.2) 10^3/ul Absolute Nucleated RBC 0 10^3/ul Nucleated RBC % 0.1 Sodium 128 L (133-145) mmol/L Potassium 3.1 L (3.5-5.0) mmol/L Chloride 89 L (101-111) mmol/L Carbon Dioxide 30 (22-32) mmol/L Anion Gap 9 (2-11) mmol/L BUN 11 (6-24) mg/dL Creatinine 0.79 (0.51-0.95) mg/dL Est GFR ( Amer) 91.0 (>60) Est GFR (Non-Af Amer) 70.8 (>60) BUN/Creatinine Ratio 13.9 (8-20) Glucose 165 H (70-100) mg/dL Lactic Acid 2.1 H* (0.5-2.0) mmol/L Calcium 9.6 (8.6-10.3) mg/dL Magnesium 1.8 L (1.9-2.7) mg/dL Total Bilirubin 0.40 (0.2-1.0) mg/dL AST 19 (13-39) U/L ALT 19 (7-52) U/L Alkaline Phosphatase 37 (34-104) U/L Troponin I 0.00 (<0.04) ng/mL Total Protein 7.8 (6.4-8.9) g/dL Albumin 4.7 (3.2-5.2) g/dL Globulin 3.1 (2-4) g/dL Albumin/Globulin Ratio 1.5 (1-3) TSH 0.82 (0.34-5.60) mcIU/mL Urine Color Urine Appearance Urine pH (5-9) Ur Specific [place] (1.010-1.030) Urine Protein (Negative) Urine Ketones (Negative) Urine Blood (Negative) Urine Nitrate (Negative) Urine Bilirubin (Negative) Urine Urobilinogen (Negative) Ur Leukocyte Esterase (Negative) Urine WBC (Auto) (Absent) Urine RBC (Auto) (Absent) Ur Squamous Epith Cells (Absent) Urine Bacteria (Absent) Urine Glucose (Negative) 10/23/17 Range/Units 17:14 WBC (3.5-10.8) 10^3/ul RBC (4.0-5.4) 10^6/ul Hgb (12.0-16.0) g/dl Hct (35-47) % MCV (80-97) fL MCH (27-31) pg MCHC (31-36) g/dl RDW (10.5-15) % Plt Count (150-450) 10^3/ul MPV (7.4-10.4) um3 Neut % (Auto) (38-83) % Lymph % (Auto) (25-47) % [place] % (Auto) (1-9) % Eos % (Auto) (0-6) % Baso % (Auto) (0-2) % Absolute Neuts (auto) (1.5-7.7) 10^3/ul Absolute Lymphs (auto) (1.0-4.8) 10^3/ul Absolute Monos (auto) (0-0.8) 10^3/ul Absolute Eos (auto) (0-0.6) 10^3/ul Absolute Basos (auto) (0-0.2) 10^3/ul Absolute Nucleated RBC 10^3/ul Nucleated RBC % Sodium (133-145) mmol/L Potassium (3.5-5.0) mmol/L Chloride (101-111) mmol/L Carbon Dioxide (22-32) mmol/L Anion Gap (2-11) mmol/L BUN (6-24) mg/dL Creatinine (0.51-0.95) mg/dL Est GFR ( Amer) (>60) Est GFR (Non-Af Amer) (>60) BUN/Creatinine Ratio (8-20) Glucose (70-100) mg/dL Lactic Acid (0.5-2.0) mmol/L Calcium (8.6-10.3) mg/dL Magnesium (1.9-2.7) mg/dL Total Bilirubin (0.2-1.0) mg/dL AST (13-39) U/L ALT (7-52) U/L Alkaline Phosphatase (34-104) U/L Troponin I (<0.04) ng/mL Total Protein (6.4-8.9) g/dL Albumin (3.2-5.2) g/dL Globulin (2-4) g/dL Albumin/Globulin Ratio (1-3) TSH (0.34-5.60) mcIU/mL Urine Color Straw Urine Appearance Clear Urine pH 7.0 (5-9) Ur Specific [place] 1.004 L (1.010-1.030) Urine Protein Negative (Negative) Urine Ketones Negative (Negative) Urine Blood 1+ H (Negative) Urine Nitrate Negative (Negative) Urine Bilirubin Negative (Negative) Urine Urobilinogen Negative (Negative) Ur Leukocyte Esterase Negative (Negative) Urine WBC (Auto) Trace(0-5/hpf) (Absent) Urine RBC (Auto) Absent (Absent) Ur Squamous Epith Cells Present H (Absent) Urine Bacteria Absent (Absent) Urine Glucose Negative (Negative) Result Diagrams: 10/23/17 16:05 10/23/17 16:05 Lab Statement: Any lab studies that have been ordered have been reviewed, and results considered in the medical decision making process. - CT brain CT Interpretation: No Acute Changes CT Interpretation Completed By: Radiologist neck CT Interpretation: No Acute Changes - IMPRESSION: MODERATE MULTILEVEL OSTEOARTHRITIC CHANGE. NO ACUTE FINDINGS. CT Interpretation Completed By: Radiologist - EKG No standard instances Cardiac Rate: NL EKG Rhythm: Sinus Rhythm EKG Interpretation: sinus rhythm, borderline T wave abnormailited, unchange from previous EKG Comparison: No Significant Change Dizzy Course/Dx - Course Course Of Treatment: 76F presents with right side upper back pain that radiates to right side of head. She also says she has vertigo when she looks to the right. This has been going on for 5 days. She had a TIA over 6 months ago. She states that back pain feels like a stiffness. She denies any fever. She denies any numbness or tingling. She denies any recent injury. She denies any change in vision. She denies any headache. She states dizziness is only with position changes. She states sometimes her head feel funny. She states that she is having difficulty walking. on exam normal neuro exam. pos todd hallpike to right with nystagmus and worsening of symptoms. tenderness over right side of back. labs na, cloride and potassium are low so supplement. ekg same as previous. CT brain and neck normal. explained that dizziness likely due to bppv so will give PT referral. will have follow up with primary about back pain. gave referral to neuro as has had previous stroke and is having gait issues but this may be due to BPPV. patient understand and agrees with plan. - Diagnoses Differential Diagnosis/HQI/PQRI: Benign Paroxysmal Positional Vertigo, CVA, Hypovolemia, Metabolic Abnormality Provider Diagnoses: Dizziness, Neck pain, BPPV (benign paroxysmal positional vertigo) Discharge - Discharge Plan Condition: Good Disposition: HOME Patient Education Materials: Benign Paroxysmal Positional Vertigo (ED), Dizziness (ED), Neck Pain (ED) Referrals: Reed Leary MD [Primary Care Provider] [place] [facility] [place] [Medical Doctor] - Sudheer Helm MD [Medical Doctor] - Additional Instructions: Follow up with PT about BPPV and back pain Follow up with neurology or primary Take tyenlol every [address] ice or heat on area Stretch back as tolerated Return to ED if develop any new or worsening symptoms
[2017-10-23 19:30] VITALS: BP 144/69
== END 2017-10-23 19:30 | disposition home or self-care (01) ==
LOC: ED 11:37
DX: R42 Dizziness and giddiness (principal); M54.2 Cervicalgia; M79.1 Myalgia; H81.10 Benign paroxysmal vertigo, unspecified ear
CPT/HCPCS: 36415; 70450; 72125; 80053; 81003; 81015; 83605; 83735; 84443; 84484; 85025; 93005; 99283; A9270-GY